=== PATIENT | male | born 2000 | race Two or more races ===

== ENCOUNTER 2022-07-10 12:05 | Emergency (ER) | payer MEDICAID ==
[~2022-07-10] VITALS: Ht 172.7 cm; Wt 80.8 kg
[2022-07-10 12:47] VITALS: BP 129/76
[2022-07-10] MEDS ORDERED: IBUP800T26 PO (19:17)
== END 2022-07-10 13:40 | disposition left against medical advice (07) ==
LOC: ER 12:05
DX: A18.01 Tuberculosis of spine (principal); Z53.21 Procedure and treatment not carried out due to patient leaving prior to being seen by health care provider

== ENCOUNTER 2022-07-10 16:28 | Emergency (ER) | payer MEDICAID ==
[~2022-07-10] VITALS: Ht 170.2 cm; Wt 80.0 kg
[2022-07-10 18:42] VITALS: BP 108/76
[2022-07-10] MEDS ORDERED: KETOROLAC TROMETH 60MG/2ML VIAL IM ONE (19:00)
[2022-07-10] MEDS ORDERED: IBUP800T26 PO (19:17)
== END 2022-07-10 19:21 | disposition home or self-care (01) ==
LOC: ER 16:28
DX: L05.01 Pilonidal cyst with abscess (principal)
CPT/HCPCS: 10080; 96372; 99284; J1885